=== PATIENT | female | born 1945 | race Caucasian/White ===

== ENCOUNTER → 2018-02-26 | Outpatient (CLI) | payer OTHER | END | disposition home or self-care (01) | LOC: KCIC 11:56 | DX: M54.5 Low back pain (principal) | CPT/HCPCS: 72072; 72110 ==

== ENCOUNTER → 2021-11-16 | Outpatient (CLI) | payer MEDICARE ==
[~2021-11-16] MED LIST: ACET-1871 PO; BIOT800T PO; CALC600T60 PO; DICL75TA PO; FLUO10TA PO; GLUC1TAB29 PO; GUAI1TBM PO; LEVO75TA5 PO; LORA10TA3 PO; MISO200T16 PO; OMEP40CA7 PO; SIMV40TA18 PO; TIZA-75 PO; TRAM50TA PO; VIT1TABL32 PO
--- NOTE | 2021-11-16 14:57 | KCIC ---
EXAM: Pelvis and right hip, 2 views. HISTORY: Pain. COMPARISON: None. FINDINGS: A frontal view of the pelvis and frog-leg view the right hip are obtained. There is right h ip joint space narrowing with degenerative subchondral sclerosis and marginal femoral head spurring. There is mild scoliosis involving the lumbar spine. There is advanced degenerative change at L4-L5 an d L5-S1, not formally assessed on this exam. IMPRESSION: 1. Moderate right hip osteoarthritis. 2. No acute osseous finding. Electronically signed by: Pita Agee MD (11/16/2021 2:55 PM) [id number]
== END ==
LOC: KCIC 11:13
PROVIDERS: ATTEND Internal Medicine Rheumatology
DX: M16.11 Unilateral primary osteoarthritis, right hip (principal); M47.817 Spondylosis without myelopathy or radiculopathy, lumbosacral region; M41.86 Other forms of scoliosis, lumbar region; M76.891 Other specified enthesopathies of right lower limb, excluding foot
CPT/HCPCS: 73501

== ENCOUNTER → 2021-12-22 | Outpatient (CLI) | payer MEDICARE ==
[~2021-12-22] MED LIST changes: +BUPIVACAINE MPF 0.5% 10 ML VIAL. INT ART ONE; +IOHEXOL 300 MG/ML 50 ML VIAL. INT ART ONE; +LIDOCAINE 1% Multi-Dose 20 ML VIAL. ID ONE; +TRIAMCINOLONE PRES.FREE 40 MG/ML VIAL. INT ART ONE
--- NOTE | 2021-12-22 17:08 | KCIC ---
PROCEDURE: Right hip steroid injection under fluoroscopic guidance INDICATION: Right hip pain. CONTRAST: 1 cc Omnipaque 300 FINDINGS: The risks, benefits and alternatives to the procedure were discussed with the patient. A timeout was performed to confirm the patient's identity and laterality of the injection. Utilizing sterile technique, fluoroscopic guidance and local anesthesia with 1% lidocaine, the right hip joint was accessed utilizing a 22-gauge 3.5" spinal needle. A small amount contrast was used to c onfirm the intra-articular location of the needle tip. Subsequently, a mixture containing 2 cc bupiva chadd and 40 mg Kenalog was injected. There were no immediate complications. Fluoroscopy time: 9 seconds Number of images obtained: 2 Impression: Technically successful right hip steroid injection under fluoroscopic guidance. Electronically signed by: SHRUTI ROJAS MD (12/22/2021 5:06 PM) [id number]
== END | disposition home or self-care (01) ==
LOC: KCIC 09:57
PROVIDERS: ATTEND Orthopaedic Surgery
DX: M16.11 Unilateral primary osteoarthritis, right hip (principal); Z79.899 Other long term (current) drug therapy
CPT/HCPCS: 20610; 77002; J3301; J3490; Q9967